=== PATIENT | female | born 1955 | race Caucasian/White ===

== ENCOUNTER 2017-06-06 08:23 | Day surgery (SDC) | payer BC ==
[2017-06-06] MEDS ORDERED: Lactated Ringers 1,000 ML IV SCH (08:30)
[2017-06-06] MEDS ORDERED: ceFAZolin 1 GM in Premix Bag 1 BAG IV ONE (09:15)
[2017-06-06] MEDS ORDERED: ceFAZolin 1 GM Vial IM ONE (09:15)
[2017-06-06] MEDS ORDERED: Propofol 200 MG/20 ML SDV ONE (09:45)
[2017-06-06] MEDS ORDERED: Midazolam 1 MG/ML 2 ML SDV ONE (09:45)
[2017-06-06] MEDS ORDERED: fentaNYL 100 MCG/2 ML SDV ONE (09:45)
[2017-06-06] MEDS ORDERED: Bupivacaine 0.5% 50 ML MDV ONE (09:49)
[2017-06-06] MEDS ORDERED: Lidocaine 0.5% 50 ML SDV ONE (09:52)
[2017-06-06] MEDS ORDERED: Povidone-Iodine 10% Soln 118.25 ML Bottle ONE (10:25)
[2017-06-06] MEDS ORDERED: Acetaminophen/HYDROcodone 325-5 MG Tab PO PRN (11:25)
[2017-06-06] MEDS ORDERED: Ketorolac 60 MG/2 ML SDV IM ONE (11:27)
--- NOTE | 2017-06-06 13:28 | OR ---
DATE OF PROCEDURE: 06/06/2017 PREOPERATIVE DIAGNOSIS: Left index ganglion cyst. POSTOPERATIVE DIAGNOSIS: Left index ganglion cyst. PROCEDURE: Left index finger ganglion cyst excision. TILER'S ASSISTANT: KVNG Morrison Physician assistant passenger locomotive engineer, Mary Beth Martinez NP, played an essential role in assisting in this case, helping to position the patient, retract structures as needed, as well as suturing and cutting sutures as indicated. Her presence improved patient's safety and decreased operative time. ANESTHESIA: [place] block plus conscious sedation. FLUIDS: Lactated Ringer solution. ESTIMATED BLOOD LOSS: Zero. COMPLICATIONS: None. SPECIMEN: None. DISCHARGE DISPOSITION: Stable to PACU. HISTORY AND INDICATION FOR THE PROCEDURE: The patient was seen preoperatively by myself in the clinic. She previously had the ganglion drained in [place] approximately one year ago. It came back and was bothering her. Risks and benefits of procedure were explained to the patient. Informed consent was obtained. DETAILS OF PROCEDURE: The patient was seen preoperatively by myself and the anesthesia staff in the preoperative holding area where the operative site was marked. She was brought to the operative suite by the anesthesia staff where a [place] block was administered plus conscious sedation. All extremities were found to be well padded. The left upper extremity was then prepped and draped in a sterile manner. Time-out was called identifying the correct patient, correct procedure, the correct site, and antibiotics had begun within an appropriate period of time. An incision was made longitudinally over the cyst, down to the level of the distal interphalangeal joint. I then identified the cyst and used tenotomies to undermine any soft tissue from the skin and then followed the stalk of the cyst down to the distal interphalangeal joint and then removed it. I then used my knife to rough up that portion of the distal interphalangeal joint where the stalk had originated. We then copiously irrigated with saline and then closed with 3-0 nylon and then placed a sterile dressing. The patient had her tourniquet let down per anesthesia and was taken to the PACU in stable condition. Kendall Gonzalez DO /[id number]
== END 2017-06-06 12:01 | disposition home or self-care (01) ==
LOC: JP.SDS 08:23
PROVIDERS: ATTEND Orthopaedic Surgery
DX: M67.442 Ganglion, left hand (principal); Z88.1 Allergy status to other antibiotic agents; Z88.8 Allergy status to other drugs, medicaments and biological substances; Z79.82 Long term (current) use of aspirin; Z79.899 Other long term (current) drug therapy
CPT/HCPCS: 26160; A9270; J1885; J2250; J2704; J3010; J7120

== ENCOUNTER 2021-10-25 07:09 | Emergency (ER) | payer MEDICARE, BC ==
[2021-10-25] MEDS ORDERED: Ketorolac 30 MG/ML SDV IM ONE (07:47)
[2021-10-25] MEDS ORDERED: fentaNYL 50 MCG/ML SDV IM ONE (09:31)
== END 2021-10-25 10:01 | disposition home or self-care (01) ==
LOC: JP.ED 07:09
DX: G57.81 Other specified mononeuropathies of right lower limb (principal); Z79.899 Other long term (current) drug therapy; Z88.2 Allergy status to sulfonamides; Z88.1 Allergy status to other antibiotic agents
CPT/HCPCS: 73590-26-RT; 73590-RT; 96372; 99283; 99283-25; J1885; J3010